=== PATIENT | male | born 1995 | race Two or more races ===

== ENCOUNTER 2024-07-16 15:52 | Emergency (ER) | payer OTHER ==
[~2024-07-16] VITALS: Ht 193 cm; Wt 90.7 kg
[2024-07-16] MEDS ORDERED: CEFTRIAXONE SODIUM 1,000 MG VIAL ONE (20:37)
[2024-07-16] MEDS ORDERED: CEFTRIAXONE SODIUM 1,000 MG VIAL IM ONE (21:00)
[2024-07-16] MEDS ORDERED: LEVOFLOXACIN500 MG PO (21:07)
[2024-07-16] MEDS ORDERED: AMOX-CLAV 875-1 EACH PO (21:07)
== END 2024-07-16 22:02 | disposition home or self-care (01) ==
LOC: ER 15:55
DX: R53.81 Other malaise (principal); Z18.31 Retained animal quills or spines